=== PATIENT | female | born 1975 | race Caucasian/White ===

== ENCOUNTER 2017-06-02 06:24 | Inpatient (IN) | payer OTHER ==
[2017-06-02] MEDS ORDERED: TERBUTALINE SULFATE 1 MG/ML VIAL IV PRN (07:06)
[2017-06-02] MEDS ORDERED: OXYTOCIN/RINGERS LACTATE 1,000 ML IV PRN (07:06)
[2017-06-02] MEDS ORDERED: OLIVE OIL 118 ML BTL MISC PRN (07:06)
[2017-06-02] MEDS ORDERED: EPSOM SALT 454 GM TP PRN (07:06)
[2017-06-02] MEDS ORDERED: LR 1,000 ML IV PRN (07:06)
[2017-06-02] MEDS ORDERED: LR 1,000 ML IV SCH (08:00)
[2017-06-02 08:28] LABS: % IMMATURE GRANULYOCYTES 0.7 % (0.0-1.1); ABSOLUTE IMMATURE GRANULOCYTES 0.05 10^3/uL (0.00-0.10); ADD DIFF? NO; ADD MORPH? NO; ADD SCAN? NO; ATYPICAL LYMPHOCYTE FLAG 40 (0-99); FRAGMENT RBC FLAG 0 (0-99); HEMATOCRIT 38.2 % (38.0-47.0); LEFT SHIFT FLG 0 (0-99); LIPEMIA HEMOLYSIS FLAG 90 (0-99); MEAN CELL HEMOGLOBIN 32.8 pg (27.9-34.1); MEAN CELL VOLUME 96.5 fL (81.5-99.8); MEAN PLATELET VOLUME 12.2 fL (8.7-11.7); PLATELET CLUMPS FLAG 0 (0-99); PLATELET COUNT 115 10^3/uL (150-400); RED BLOOD CELL COUNT 3.96 10^6/uL (4.18-5.33); RED CELL DISTRIBUTION WIDTH 13.7 % (11.5-15.2)
[2017-06-02] MEDS ORDERED: OXYTOCIN/LR *LOW DOSE PROTOCOL IV SCH (08:30)
--- NOTE | 2017-06-02 09:33 | GHP ---
[f rep st] PREOP HISTORY AND PHYSICAL DATE OF ADMISSION: 06/02/2017 REASON FOR ADMISSION: The patient admitted to Labor and Delivery for induction at term on 06/02/2017 on the Obstetric Service. HISTORY OF PRESENT ILLNESS: The patient is a 41-year-old G-3, P-1, A-1 at 40- plus weeks gestation with an estimated due date of 05/27/2017. The patient is advised to not go past 41 weeks gestation with her advanced maternal age. Also , she has an LGA infant. The patient's has been followed with [facility] since 8 weeks gestation. Her dating is by sure last menstrual period consistent with an 8 week ultrasound. care has essentially been uncomplicated other than joint pains with her symphysis pubis and her tailbone. Patient had a fall onto her tail bone in the last month of and has been very uncomfortable. At the time of 20 week ultrasound the baby was estimated 85th percentile weight. The patient has been on iron for mild anemia. LABS: Maternal blood type B positive. Platelets baseline in the were 221. Rubella is immune. Varicella is nonimmune. Pap smear was normal. Urinalysis and culture were negative. Gonorrhea and chlamydia were negative. Quad screen was negative. One-hour Glucola was normal at 125. Repeat hematocrit had dropped to 34% and the patient was started on the iron. GBS culture was negative. RPR nonreactive. Hepatitis B surface antigen negative and HIV negative. PAST MEDICAL HISTORY: Negative. PAST SURGICAL HISTORY: D and C, odontectomy, plastic surgery of the nasal bone. PAST OBSTETRIC HISTORY: In January 2012, a male delivered at 7 pounds vaginally at 39 weeks. The delivery was assisted with forceps. In 2013, a missed AB managed with a D and C. ALLERGIES: No known drug allergies. CURRENT MEDICATIONS: Only vitamins with additional iron. SOCIAL HISTORY: The patient is , lives with her and son. The patient is in pharmacy school. There is some slight language barrier as the patient commonly speaks with her in her language. She does converse in Latvian. The patient is a nonsmoker. No alcohol or drug use. PHYSICAL EXAM: GENERAL: Upon admission, the patient is a well-developed, well- nourished [place] female in mild physical distress just with gravid and pelvic discomfort. VITAL SIGNS: The patient is afebrile with normal vital signs. See nursing documentation for full details. heart tone tracing is category 1 with baseline in the 130s with good variability and accelerations. No decelerations noted. Contractions minimal palpable every 2- 6 minutes. The patient has just been started on Pitocin. PELVIC EXAM: Reveals 3 cm soft cervix 70% effaced, -1 station but posterior. EXTREMITIES: Nontender, minimal edema. ASSESSMENT: Intrauterine at 40 weeks and 6 days with estimated due date of May 27. Advanced maternal age at 41 years old. GBS negative. History of forceps vaginal delivery. PLAN: Induction today with Pitocin and AROM when ready. The patient desires an epidural and she will receive this when she desires. /[id number]/MODL MTDD
[2017-06-02] MEDS ORDERED: OLIVE OIL 118 ML BTL ONE (09:52)
[2017-06-02] MEDS ORDERED: AMMONIA AROMATIC 1 EACH AMP IH ONE (09:52)
[2017-06-02] MEDS ORDERED: TERBUTALINE SULFATE 1 MG/ML VIAL ONE (09:52)
[2017-06-02] MEDS ORDERED: LIDOCAINE 1% 300 MG/30 ML SDV ONE (09:52)
[2017-06-02] MEDS ORDERED: OXYTOCIN 10 UNIT/ML VIAL ONE (09:53)
[2017-06-02] MEDS ORDERED: MISOPROSTOL 200 MCG TAB ONE (09:53)
[2017-06-02] MEDS: IBUPROFEN 600 MG TAB PO PRN ×2 (12:00→23:46)
--- NOTE | 2017-06-02 13:52 | OBPROG ---
OBG Labor Progress Note Assessment/Plan: Assessment: IUP at 40w6d induction with pit - not uncomfortable GBS - hx forceps del Plan: AROM, cont with pit, QUINCY when needed 06/02/17 13:49 Subjective: Pt doing fine. Not uncomfortable. GFM, ok with AROM Objective: 06/02/17 08:00 Patient ABO/Rh B POSITIVE 06/02/17 08:00 - SVE Dilation (cm): 4 Effacement (%): 90 Station: -1 Lim Current Contraction Pattern: Regular (q3 min on 16 mu/min pit) FHR (bpm): 120 FHR Pattern Variability: Moderate FHR Category: 1 Membranes: AROM Amniotic Fluid Color: Clear (with blood tinge) - Procedures Non-surgical Procedures: Amniotomy Oxytocin Orders Assessment - Pre-Induction/Augmentation Assessment Indication: post dates Presentation: Vertex Gestational Age: 40 week(s) and 6 day(s) Estimated Weight: 2501-3400g Membrane Status: Ruptured Current Contraction Pattern: Regular - Heart Rate Pattern Lim FHR Baseline (bpm): 130 FHR Category: 1 FHR Pattern Variability: Moderate FHR Accelerations: Present - Negrete's Score Dilation: 3-4cm Effacement: 60-70 Station: -1,0 Cervix: Soft Cervix Position: Posterior Negrete Score Total: 8 - Induction/Augmentation Consent Risks/Benefits of Procedure Reviewed/Pt Agrees to Proceed: Yes ICD10 Worksheet Patient Problems: Problems Problem Status Onset Post-dates Acute - ICD10 Problem Qualifiers (1) Post-dates Qualifiers: Post-term type: P
[2017-06-02] MEDS ORDERED: fentaNYL 2MCG/ML/BUP 0.1% RTU 100 ML BAG EP ONE (15:24)
[2017-06-02] MEDS ORDERED: fentaNYL 100 MCG/2 ML INJ ONE (15:24)
[2017-06-02] MEDS ORDERED: PHENYLEPHRINE HCL 100 MCG/ML SYR ONE (15:25)
[2017-06-02] MEDS ORDERED: BUPIVACAINE 0.25% 30 ML SDV ONE (15:25)
--- NOTE | 2017-06-02 16:31 | PREANESOB ---
Obstetric Pre-Anesthesia Info - General Info Proposed Procedure: Labor and delivery with pitocin. : 3 Para: 1 WBD: 41 - Info Status: Postmature Monitors: External FHR Baseline (bpm): 130 FHR Pattern: Reassuring - Labor Status Cervical Dilation per last OB SVE: 4 Station per last OB SVE: -1 Pitocin: In Use Indications for Labor Analgesia: Induction of Labor, Pain Control Labor Epidural: Proposed Anesthesia ROS: Prior labor epidural. Allergies/Adverse Reactions: Allergy/AdvReac Type Severity Reaction Status Date / Time No Known Allergies Allergy Unverified 06/02/17 07:05 Home Medications: Medication Instructions Recorded IRON,CARBONYL [IRON] 1 tab PO DAILY 06/02/17 Vit27&Calcium/Iron/FA 1 tab PO DAILY 06/02/17 [] Visit Medications: Generic Name Dose Route Start Last Admin Trade Name Freq PRN Reason Stop Dose Admin Lactated Ringer's 1,000 mls @ 0 mls/hr 06/02/17 07:06 Lr IV 11/29/17 07:05 PRN PRN SEE PROTOCOL CONDITIONS Protocol Per Protocol Oxytocin/Lactated Ringer's 1,000 mls @ 150 mls/hr 06/02/17 07:06 Pitocin 20 Units/Lr (Premix) IV PRN PRN Post- bleeding Lactated Ringer's 1,000 mls @ 125 mls/hr 06/02/17 08:00 06/02/17 08:30 Lr IV 11/29/17 07:59 1,000 mls CONT BRIANA Administration Oxytocin/Lactated Ringer's 500 mls @ 1 mls/hr 06/02/17 08:30 06/02/17 08:30 Pitocin 30 Units/Lr (Premix) IV 11/29/17 08:29 500 mls CONT BRIANA Administration Protocol Ibuprofen 600 mg 06/02/17 07:06 06/02/17 12:00 Motrin PO 11/29/17 07:05 600 mg Q6HRS PRN Administration post , inflammation Magnesium Sulfate 454 gm 06/02/17 07:06 Epsom Salt TP 11/29/17 07:05 Q1H PRN perineal discomfort [place] Oil 118 ml 06/02/17 07:06 Sweet Oil MISC 11/29/17 07:05 ONCE PRN preneal massage Terbutaline Sulfate 0.25 mg 06/02/17 07:06 Brethine IV 11/29/17 07:05 ONCE PRN Tachysystole Discontinued Medications Generic Name Dose Route Start Last Admin Trade Name [place] PRN Reason Stop Dose Admin Ammonia (Aromatic Spirit) Confirm 06/02/17 09:52 Ammonia Aromatic Administered 06/02/17 09:53 Dose 1 each IH .STK-MED ONE Bupivacaine HCl Confirm 06/02/17 15:25 Sensorcaine 0.25% Sdv Administered 06/02/17 15:26 Dose 30 ml .ROUTE .STK-MED ONE Ephedrine Sulfate Confirm 06/02/17 09:52 Ephedrine Sulfate Administered 06/02/17 09:53 Dose 50 mg .ROUTE .STK-MED ONE Fentanyl Confirm 06/02/17 15:24 Sublimaze Administered 06/02/17 15:25 Dose 100 mcg .ROUTE .STK-MED ONE Fentanyl/Bupivacaine HCl Confirm 06/02/17 15:24 Fentanyl/Bupivacaine/Ns 2 Mcg/Ml 0.1% (Premix Administered 06/02/17 15:25 Dose 100 ml EP .STK-MED ONE Lidocaine HCl Confirm 06/02/17 09:52 Lidocaine Hcl 1% Administered 06/02/17 09:53 Dose 300 mg .ROUTE .STK-MED ONE Misoprostol Confirm 06/02/17 09:53 Cytotec Administered 06/02/17 09:54 Dose 1,000 mcg .ROUTE .STK-MED ONE [place] Oil Confirm 06/02/17 09:52 Sweet Oil Administered 06/02/17 09:53 Dose 118 ml .ROUTE .STK-MED ONE Oxytocin Confirm 06/02/17 09:53 Pitocin Administered 06/02/17 09:54 Dose 40 unit .ROUTE .STK-MED ONE Phenylephrine HCl Confirm 06/02/17 15:25 Neosynephrine Administered 06/02/17 15:26 Dose 1,000 mcg .ROUTE .STK-MED ONE Terbutaline Sulfate Confirm 06/02/17 09:52 Brethine Administered 06/02/17 09:53 Dose 1 mg .ROUTE .STK-MED ONE - Anesthesia History Response to Local Anesthetics: Normal Anesthesia & Operative History: No Prior Problems Family Anesthesia History: Negative - Social History Substance Use/Abuse: Denies - Focused Exam Blood Pressure: 113/72 Heart Rate: 76 Respiratory Rate: 14 Height/Weight (Nursing): Height 167.64 cm Weight 76.657 kg Airway: No abnormalities. Physical Exam: Within normal limits. ASA Status: II Labs: 06/02/17 08:00 Patient ABO/Rh B POSITIVE 06/02/17 08:00 - Plan Anesthetic Plan: CSE Consent Signed and on Chart: Yes Patient/Guardian Understands and Agrees to Plan: Yes Urgent/Emergent Case: Charlotte pitts completed preop but documented later for safe timely pt care
--- NOTE | 2017-06-02 16:34 | POSTANESTH ---
Post Anesthetic Evaluation Cardiovascular Status: Normal, Stable Respiratory Status: Normal, Stable, Similar to Pre-op Cond. Level of Consciousness/Mental Status: Can Participate in Eval, Alert and Oriented Pain Control: Adequate, Prn Tx Ordered Nausea/Vomiting Control: Adequate, Prn Tx Ordered Complications Possibly Related to Anesthesia: None Noted
[2017-06-02] MEDS ORDERED: PHENYLEPHRINE HCL 100 MCG/ML SYR IVP PRN (16:35)
[2017-06-02] MEDS ORDERED: ONDANSETRON 4 MG/2 ML VIAL IVP PRN (16:35)
[2017-06-02] MEDS ORDERED: LR 500 ML IV SCH (17:00)
[2017-06-02] MEDS ORDERED: fentaNYL 2MCG/ML/BUP 0.1% RTU 100 ML EP SCH (17:00)
--- NOTE | 2017-06-02 18:15 | OBPROG ---
OBG Labor Progress Note Assessment/Plan: Assessment: IUP at 40w6d induction with pit - comfortable now with QUINCY GBS - hx forceps del Plan: AROM, cont with pit, QUINCY 06/02/17 13:49 06/02/17 18:12 Subjective: Pt very comfortable. Objective: 06/02/17 08:00 Patient ABO/Rh B POSITIVE 06/02/17 08:00 Temp Pulse Resp BP Pulse Ox 76 14 113/72 06/02/17 16:34 06/02/17 16:34 06/02/17 16:34 - SVE Dilation (cm): 8 Effacement (%): 100 Station: 0 Lim Current Contraction Pattern: Regular (q 2-3 min on pit 19 mu/min) FHR (bpm): 130 FHR Pattern Variability: Moderate FHR Category: 2 (variable decels now after last exam and position change) Membranes: AROM Amniotic Fluid Color: Clear (with blood tinge) - Procedures Non-surgical Procedures: Amniotomy - Physical Exam Estimated Weight: 2501-3400g Oxytocin Orders Assessment - Pre-Induction/Augmentation Assessment Presentation: Vertex Gestational Age: 40 week(s) and 6 day(s) Estimated Weight: 2501-3400g ICD10 Worksheet Patient Problems: Problems Problem Status Onset Post-dates Acute - ICD10 Problem Qualifiers (1) Post-dates Qualifiers: Post-term type: P
--- NOTE | 2017-06-02 18:19 | OBGCSDC ---
<Debbie Coelho - Last Filed: 06/03/17 07:59> General Delivery Information - General Info : 3 Para: 1 Abortions: 1 Delivery Physician/CNM: Debbie Coelho Labs: Patient ABO/Rh B POSITIVE 06/02/17 08:00 Hct 38.2 % (38.0-47.0) 06/02/17 08:00 Vaginal - Diagnosis Labor: Induced Presentation at Delivery: Vertex Rupture of Membranes Type: Artificial Amniotic Fluid Color: Clear (blood tinged) Laceration: 1st Degree (midline perineal) Repair: Other (Specify) (none needed) Delivery Events: Nuchal Cord (x1 loose and reduced), Retained Placenta ( manually extracted at 30 min, Abran curretting for RPOCs, u/s used and thin lining after) - Operations/Procedures Non-surgical Procedures: Amniotomy L&D Analgesia/Anesthesia Type: Epidural - Hospital Course Antepartum: pelvic pain with symphysis and tailbone Intrapartum: admit at 3/70/-1 and pit started - AROM hrs later at 4 cm. pain increased and QUINCY placed. good progress to 8 cm. complete 2 hrs later. pushed with dense QUINCY x 2 hrs. Manual extraction of placenta at 30 min. Abran curretting for RPOCs under u/s quidance - thin lining after. placenta with succinturate lobe - thick particulate mec noted with pushing - Delivery Non-surgical Procedures: Amniotomy Data Lim Delivery Date: 06/02/17 Delivery Time: 22:12 MARCO: 05/27/17 Gestational Age: 41 week(s) and 0 day(s) Sex of : Male Weight (gm): 4468 g Score (1 Min): 7 Score (5 Min): 9 Discharge Information - Discharge Information Condition: Good <Tesha Arana - Last Filed: 06/04/17 09:04> General Delivery Information - General Info Labs: Patient ABO/Rh B POSITIVE 06/02/17 08:00 Hct 30.0 % (38.0-47.0) L 06/03/17 05:45 Vaginal - Hospital Course : uncomplicated post course. breast feeding is going well. denies headache and changes in vision. tolerating iron. ready to go home.
[2017-06-02 22:28] LABS: BASE EXCESS CORD -6.5 mEq/L (-13.6--3.2); CORD BLOOD PCO2 38.8 mmHg (37-60); PH ARTERIAL CORD BLOOD 7.31 (7.10-7.37)
[2017-06-03] MEDS ORDERED: ACETAMINOPHEN 325 MG TAB PO PRN (00:07)
[2017-06-03] MEDS ORDERED: POLYETHYLENE GLYCOL 3350 17 GM PKT PO PRN (00:10)
[2017-06-03] MEDS ORDERED: LACTULOSE 20 GM/30 ML UDCUP PO PRN (00:10)
[2017-06-03] MEDS ORDERED: BISACODYL 10 MG SUPP PR PRN (00:10)
[2017-06-03] MEDS ORDERED: MAGNESIUM HYDROXIDE 30 ML UDCUP PO PRN (00:10)
--- NOTE | 2017-06-03 00:14 | OBDEL ---
Info Type: Vaginal GBS+: No Indications for Delivery: Postterm Favorable Cervix Vaginal Delivery - Labor and Delivery Onset of Contractions Date: 06/02/17 Onset of Contractions Time: 08:30 Onset of Contractions Type: Induced Rupture of Membranes Date: 06/02/17 Rupture of Membranes Time: 13:36 Rupture of Membranes Type: Artificial Amniotic Fluid Color: Clear (blood tinged) Dilation Complete Date: 06/02/17 Dilation Complete Time: 20:13 Placenta Delivery Date: 06/02/17 Placenta Delivery Time: 22:44 Total Hours of Labor: 14 Non-surgical Procedures: Amniotomy Laceration: 1st Degree (perineal, midline) Repair: Other (Specify) (no repair needed) Vaginal Sponge Count Correct: Yes Vaginal Needle Count Correct: Yes Vaginal Sweep Performed: Yes EBL: 450 Delivery Events: Nuchal Cord (x1 loose and reduced), Retained Placenta (manual extraction at 30 minutes, continued RPOCs and Abran currettage performed under ultrasound guidance - good uterine tone returned quickly. thin lining after currettage) Cord Gases: Cord Gases Cord Blood PCO2 38.8 mmHg (37-60) 06/02/17 22:18 Cord Base Excess -6.5 mEq/L (-13.6--3.2) 06/02/17 22:18 Cord ABG pH 7.31 (7.10-7.37) 06/02/17 22:18 Cord VBG pH REJ 06/02/17 22:18 - Medications Labor Augmentation/Induction Methods Used: Pitocin Labor Augmentation/Induction Indication: Post Dates, LGA Operative Report - Delivery Presentation at Delivery: Vertex Surgeon: Debbie Coelho L&Ephra[facility] Analgesia/Anesthesia Type: Epidural Cord Gases: Cord Gases Cord Blood PCO2 38.8 mmHg (37-60) 06/02/17 22:18 Cord Base Excess -6.5 mEq/L (-13.6--3.2) 06/02/17 22:18 Cord ABG pH 7.31 (7.10-7.37) 06/02/17 22:18 Cord VBG pH REJ 06/02/17 22:18 Alliance Data Lim Delivery Date: 06/02/17 Delivery Time: 22:12 MARCO: 05/27/17 Gestational Age: 41 week(s) and 0 day(s) Sex of : Male Weight (gm): 4468 g Score (1 Min): 7 Score (5 Min): 9 ICD10 Worksheet Patient Problems: Problems Problem Status Onset (spontaneous vaginal delivery) Acute Post-dates Acute - ICD10 Problem Qualifiers (1) Post-dates Qualifiers: Post-term type: P
[2017-06-03] MEDS: IBUPROFEN 600 MG TAB PO PRN ×3 (05:25→19:35)
[2017-06-03] MEDS: SENNOSIDES/DOCUSATE SODIUM TAB PO SCH ×2 (08:15→19:35)
[2017-06-03] MEDS: HYDROCORTISONE 0.5% CREAM TP SCH ×2 (08:15→21:14)
[2017-06-03] MEDS: HYDROCODONE/APAP 5/325 TAB PO PRN (08:16)
--- NOTE | 2017-06-03 11:25 | OBPP ---
Progress Note Assessment/Plan: Assessment: 41 y/o PPD #1 s/p doing well Plan: Bifera QD for anemia. support and routine PPC. Will desire to d/c home tomorrow. 06/03/17 11:25 Subjective: Pt is doing well this am. She has significant cramping with nursing well controlled with [place] and Ibuprofen. She is ambulating, voiding and has min lochia. Objective: 06/03/17 05:45 Patient ABO/Rh B POSITIVE 06/02/17 08:00 Temp Pulse Resp BP Pulse Ox 36.4 C 92 18 99/66 L 93 06/03/17 08:05 06/03/17 08:05 06/03/17 08:05 06/03/17 08:05 06/03/17 08:05 Uterine Position/Fundal Height: Umbilicus -2 Uterine Tone: Firm Physical Exam - Physical Exam General Appearance: WD/WN, alert, no apparent distress Neck: non-tender, full range of motion, supple Respiratory: chest non-tender, lungs clear, normal breath sounds Cardiac/Chest: regular rate, rhythm Abdomen: normal bowel sounds Extremities: swelling (no), Adalberto's sign (neg)
[2017-06-03] MEDS: IRON POLYSAC/IRON HEME 28 MG TAB PO SCH ×2 (12:23→19:35)
[2017-06-03 21:12] VITALS: O2SAT 95
[2017-06-04] MEDS: IBUPROFEN 600 MG TAB PO PRN ×2 (01:33→08:06)
[2017-06-04] MEDS: SENNOSIDES/DOCUSATE SODIUM TAB PO SCH (08:08)
[2017-06-04] MEDS: IRON POLYSAC/IRON HEME 28 MG TAB PO SCH (08:08)
[2017-06-04 08:29] VITALS: BP 105/75; PULSE 90; RESP 14; TEMP 97
[2017-06-04] MEDS: HYDROCORTISONE 0.5% CREAM TP SCH (08:41)
--- NOTE | 2017-06-04 09:03 | OBPP ---
Progress Note Assessment/Plan: Assessment: p2 ppd# 2 s/p uncomplicated post course breast feeding anemia B+/RI Plan: routine post care and discharge instructions iron 06/04/17 09:01 Subjective: patient is doing well. pain is well controlled. normal lochia. breast feeding is going well. denies headache and changes in vision. ambulating. passing gas. ready to go home. Objective: 06/03/17 05:45 Patient ABO/Rh B POSITIVE 06/02/17 08:00 Temp Pulse Resp BP Pulse Ox 36.1 C 90 14 105/75 95 06/04/17 08:10 06/04/17 08:10 06/04/17 08:10 06/04/17 08:10 06/04/17 08:10 Uterine Position/Fundal Height: Umbilicus -2 Uterine Tone: Firm Physical Exam - Physical Exam General Appearance: WD/WN, alert, no apparent distress Neck: non-tender, full range of motion, supple Respiratory: chest non-tender, lungs clear, normal breath sounds Cardiac/Chest: normal peripheral pulses, regular rate, rhythm Abdomen: normal bowel sounds, hypoactive bowel sounds, non-tender, other ( fundus firm and non tender) Extremities: normal range of motion, non-tender, normal inspection, normal capillary refill Skin: normal color, warm/dry Neuro/Psych: no motor/sensory deficits, alert, normal mood/affect, oriented x 3
[2017-06-04] MEDS: HYDROCODONE/APAP 5/325 TAB PO PRN (12:30)
== END 2017-06-04 13:50 | disposition home or self-care (01) | DRG 767 ==
LOC: FLD 06:24 → FOB 06-03 01:53
PROVIDERS: ADMIT Obstetrics & Gynecology; ATTEND Obstetrics & Gynecology
PROC: 10907ZC Drainage of Amniotic Fluid, Therapeutic from Products of Conception, Via Natural or Artificial Opening (ICD-10-PCS; principal; 2017-06-02)
PROC: 0HQ9XZZ Repair Perineum Skin, External Approach (ICD-10-PCS; principal; 2017-06-02)
PROC: 10E0XZZ Delivery of Products of Conception, External Approach (ICD-10-PCS; principal; 2017-06-02)
PROC: 10D17ZZ Extraction of Products of Conception, Retained, Via Natural or Artificial Opening (ICD-10-PCS; principal; 2017-06-02)
PROC: 3E033VJ Introduction of Other Hormone into Peripheral Vein, Percutaneous Approach (ICD-10-PCS; principal; 2017-06-02)
DX: O48.0 Post-term pregnancy (principal); Z37.0 Single live birth; O36.63X0 Maternal care for excessive fetal growth, third trimester, not applicable or unspecified; O70.0 First degree perineal laceration during delivery; Z3A.41 41 weeks gestation of pregnancy; O69.82X0 Labor and delivery complicated by other cord entanglement, without compression, not applicable or unspecified; O73.0 Retained placenta without hemorrhage
CPT/HCPCS: J2370; J2590; J3010; J3105

== ENCOUNTER → 2017-08-07 | Outpatient (CLI) | payer OTHER | LOC: FIMAGING 14:18 | PROVIDERS: ATTEND Obstetrics & Gynecology | DX: N63 Unspecified lump in breast (principal) ==

== ENCOUNTER → 2017-10-05 | Outpatient (CLI) | payer OTHER | LOC: FLACT 11:39 | PROVIDERS: ATTEND Obstetrics & Gynecology | DX: Z39.1 Encounter for care and examination of lactating mother (principal) | CPT/HCPCS: G0463 ==